=== PATIENT | male | born 1955 | race Caucasian/White ===

== ENCOUNTER → 2019-11-05 09:26 | Outpatient (CLI) | payer BC, SELFPAY ==
--- NOTE | ~2019-11-05 | CT_ITS ---
EXAMINATION: CT chest wo con DATE: 11/05/2019 09:54 INDICATION: Shortness of breath and cough, chronic obstructive pulmonary disease, unspecified TECHNIQUE: Computed tomography (CT) of the chest was performed without intravenous contrast. The dose -length product (DLP) was 320.29 mGy-cm. 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 COMPARISON: None FINDINGS: The lungs are free of acute opacities. There is pleural effusion or pneumothorax. No pathol ogically enlarged thoracic lymph nodes are identified. The heart size is normal. There is calcified c oronary artery atherosclerosis cysts of the liver measure up to 1.6 cm in the right hepatic lobe. The re is mild thoracic spondylosis. IMPRESSION: 1. No CT correlate for the patient's symptoms. Reviewed, dictated and finalized at location A.
== END ==
PROVIDERS: PCP Internal Medicine; Visit Provider Internal Medicine
DX: J44.9 Chronic obstructive pulmonary disease, unspecified (principal)
CPT/HCPCS: 71250

== ENCOUNTER → 2020-03-10 09:33 | Outpatient (CLI) | payer BC, SELFPAY ==
--- NOTE | ~2020-03-10 | CT_ITS ---
EXAMINATION: CT chest wo con DATE: 03/10/2020 10:05 INDICATION: Shortness of breath TECHNIQUE: Computed tomography (CT) of the chest was performed without intravenous contrast. The dose -length product (DLP) was 727.74 mGy-cm. 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 COMPARISON: 11/05/2019 FINDINGS: There is a 1.4 cm groundglass nodule in the medial aspect of the left lower lobe on image 6 5 without definite solid. There is mild emphysema. No pleural effusion or pneumothorax is identified. No pathologically enlarged thoracic lymph nodes are identified. The heart size is normal. Coronary a rtery stents are noted. Calcified coronary artery atherosclerosis is noted. Cysts of the liver measur e up to 1.6 cm in the right hepatic lobe. There is mild thoracic spondylosis. There is moderate osteo arthritis of the right glenohumeral joint. IMPRESSION: 1. Subsolid nodule of the left lower lobe, likely infectious or inflammatory. Follow-up low-dose ches t CT in three months is recommended. Reviewed, dictated and finalized at location A. 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 Subsolid nodule of the left lower lobe, likely infectious or inflammatory. F ollow-up low-dose chest CT in three months is recommended.
== END ==
PROVIDERS: PCP Internal Medicine; Visit Provider Internal Medicine
DX: R06.02 Shortness of breath (principal); R91.1 Solitary pulmonary nodule
CPT/HCPCS: 71250